=== PATIENT | male | born 1995 | race Caucasian/White ===

== ENCOUNTER 2017-04-05 14:40 | Outpatient (CLI) | payer MEDICAID ==
--- NOTE | 2017-04-05 16:15 | XRAY Report ---
THREE VIEW CERVICAL SPINE: 04/05/2017 CLINICAL INDICATION: Neck pain. FINDINGS: AP, lateral, and odontoid views of the cervical spine demonstrate mild degenerative disk d isease, with disk space narrowing at C7-T1. There is no evidence of acute fracture. No prevertebral s oft tissue swelling is present. IMPRESSION: MILD DEGENERATIVE CHANGES AT C7-T1. JOB #: [id number] EXT JOB #:[id number]
--- NOTE | 2017-04-05 16:16 | XRAY Report ---
THREE-VIEW RIGHT SHOULDER: 04/05/2017 CLINICAL INDICATION: Pain. FINDINGS: Internal and external rotational views and a scapular Y view of the right shoulder demonst rate no evidence of fracture or dislocation. The joint spaces are preserved. No radiopaque foreign body is seen in the soft tissues. IMPRESSION: NORMAL RIGHT SHOULDER. JOB #: [id number] EXT JOB #:[id number]
== END 2017-04-05 14:41 | disposition home or self-care (01) ==
LOC: DI.S 14:40
PROVIDERS: ATTEND Nurse Practitioner Family
DX: M54.2 Cervicalgia (principal); M25.511 Pain in right shoulder; M25.311 Other instability, right shoulder
CPT/HCPCS: 72040

== ENCOUNTER 2020-11-16 10:36 | Outpatient (CLI) | payer MEDICAID ==
[2020-11-16 15:40] LABS: CHOL/HDL RATIO 3.2 (<5.0); CHOLESTEROL 196 mg/dL; HDL CHOLESTEROL 61 mg/dL; LDL CHOLESTEROL,CALCULATED 120 mg/dL; TRIGLYCERIDES 76 mg/dL; VLDL CHOLESTEROL 15 mg/dL
== END 2020-11-16 10:37 | disposition home or self-care (01) ==
LOC: LAB.S 10:36
PROVIDERS: ATTEND Physician Assistant
DX: Z00.00 Encounter for general adult medical examination without abnormal findings (principal); R55 Syncope and collapse; G40.909 Epilepsy, unspecified, not intractable, without status epilepticus
CPT/HCPCS: 36415; 80061; 83721